=== PATIENT | female | born 1995 | race Caucasian/White ===

== ENCOUNTER 2016-07-18 02:52 | Emergency (ER) | payer OTHER | END 2016-07-18 04:55 | disposition home or self-care (01) | LOC: ER 02:52 | DX: J02.9 Acute pharyngitis, unspecified (principal); R11.2 Nausea with vomiting, unspecified; F41.9 Anxiety disorder, unspecified; Z79.899 Other long term (current) drug therapy; Z88.0 Allergy status to penicillin; Z88.8 Allergy status to other drugs, medicaments and biological substances | CPT/HCPCS: 87651 ==